=== PATIENT | male | born 2005 | race African-American/Black ===

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

== ENCOUNTER 2025-04-30 17:20 | Outpatient (REF) | payer MEDICAID, SELFPAY ==
[2025-05-01 22:55] LABS: Campylobacter PCR Negative (Negative); Shiga Toxin PCR Negative (Negative); Shigella/Enteroinvasive Ecoli Negative (Negative)
== END 2025-04-30 17:21 | disposition home or self-care (01) ==
LOC: NCHCN 17:20
PROVIDERS: PCP Family Medicine; Visit Provider Family Medicine
DX: R19.7 Diarrhea, unspecified (principal)
CPT/HCPCS: 87015; 87269; 87272; 87505

== ENCOUNTER 2025-05-18 21:08 | Outpatient (REF) | payer MEDICAID, SELFPAY ==
[2025-05-18 21:38] LABS: Abs Immature Grans 0.02 10^3/uL (0.0-0.06); HCT 49.2 % (40.0-50.0); HGB 15.6 g/dL (13.5-17.5); Immature Grans % 0.3 %; MCH 27.1 pg (27.0-33.0); MCHC 31.7 % (32.0-36.0); MCV 86 fL (80-95); MPV 9.1 fL (8.0-11.0); Platelet Count 395 10^3/uL (130-400); RBC 5.75 10^6/uL (4.36-5.78); RDW 12.4 % (11.8-14.1); RDW-SD 38.5 fL; WBC 6.30 10^3/uL (4.4-10.8)
[2025-05-18 21:44] LABS: ESR 5 mm/hr (0-15)
[2025-05-18 22:01] LABS: ALT 54 U/L (16-63); AST 23 U/L (15-37); Albumin 4.7 g/dL (3.4-5.0); Alkaline Phosphatase 87 U/L (46-116); Anion Gap 6.5 mmol/L (3-11); BUN 15 mg/dL (7-18); Bilirubin, Total 0.4 mg/dL (0.2-1.0); C-Reactive Protein < 0.50 mg/dL (<or=0.5); CO2 30.5 mmol/L (21.0-32.0); Calcium 10.3 mg/dL (8.5-10.1); Chloride 104 mmol/L (98-107); Estimated GFR 99.17 (mL/min/1.73m2); Glucose 70 mg/dL (74-106); Lipase 27 U/L (<78); Potassium 4.4 mmol/L (3.5-5.1); Sodium 141 mmol/L (136-145); TSH (W/Ref FT4) 0.63 uIU/mL (0.52-4.13); Total Protein 8.2 g/dL (6.4-8.2)
== END 2025-05-18 21:09 | disposition home or self-care (01) ==
LOC: NCHCN 21:08
PROVIDERS: PCP Family Medicine; Visit Provider Family Medicine
DX: K52.9 Noninfective gastroenteritis and colitis, unspecified (principal)
CPT/HCPCS: 80053; 83690; 85652; 84443; 85025; 86140